=== PATIENT | male | born 1985 | race Native Hawaiian/Other Pacific Islander ===

== ENCOUNTER 2019-01-23 08:16 | Emergency (ER) | payer MEDICAID, OTHER ==
[~2019-01-23] VITALS: Ht 185.4 cm; Wt 138.0 kg
[2019-01-23 08:24] VITALS: BP 138/97
== END 2019-01-23 09:50 | disposition home or self-care (01) ==
LOC: ER 08:17
DX: M76.61 Achilles tendinitis, right leg (principal); F15.90 Other stimulant use, unspecified, uncomplicated
CPT/HCPCS: 29515; 73630; 99283

== ENCOUNTER 2019-02-02 15:18 | Outpatient (CLI) | payer MEDICAID | END 2019-02-02 17:50 | disposition home or self-care (01) | LOC: ORTHO 15:18 | PROVIDERS: ATTEND Orthopaedic Surgery | DX: M76.61 Achilles tendinitis, right leg (principal) | CPT/HCPCS: G0463 ==

== ENCOUNTER 2021-12-30 15:52 | Emergency (ER) | payer MEDICAID ==
[~2021-12-30] VITALS: Ht 188 cm; Wt 186.7 kg
[2021-12-30 16:30] LABS: BASOPHILS # (AUTO) 0.1 X10'3 (0-0.2); BASOPHILS % (AUTO) 0.8 % (0-1); EOSINOPHILS # (AUTO) 0.3 X10'3 (0-0.9); EOSINOPHILS % (AUTO) 2.7 % (0-6); HEMATOCRIT 45.4 % (42.0-52.0); HEMOGLOBIN 15.8 g/dl (14.0-17.9); LYMPHOCYTES # (AUTO) 2.4 X10'3 (1.1-4.8); LYMPHOCYTES % (AUTO) 24.9 % (21-51); MEAN CORPUSCULAR HEMOGLOBIN 29.3 PG (27.0-31.0); MEAN CORPUSCULAR HGB CONC 34.8 g/dL (33.0-36.5); MEAN CORPUSCULAR VOLUME 84.2 FL (78-98); MEAN PLATELET VOLUME 7.3 FL (7.4-10.4); MONOCYTES # (AUTO) 0.5 X10'3 (0-0.9); MONOCYTES % (AUTO) 5.6 % (2-12); NEUTROPHILS # (AUTO) 6.4 X10'3 (1.8-7.7); PLATELET COUNT 335 X10'3 (140-440); RED BLOOD COUNT 5.39 X10'6 (4.70-6.10); RED CELL DISTRIBUTION WIDTH 14.3 % (11.5-14.5); WHITE BLOOD COUNT 9.6 X10'3 (4.5-11.0)
[2021-12-30 16:45] LABS: ALANINE AMINOTRANSFERASE 31 U/L (12-78); ALBUMIN 3.7 G/DL (3.4-5.0); ALBUMIN/GLOBULIN RATIO 0.9 (1.1-1.5); ALKALINE PHOSPHATASE 140 IU/L (46-116); ANION GAP 9 (8-16); ASPARTATE AMINO TRANSFERASE 26 U/L (10-37); BILIRUBIN,TOTAL 0.6 MG/DL (0.1-1.0); BLOOD UREA NITROGEN 12 MG/DL (7-18); BUN/CREATININE RATIO 13.6 (5.4-32.0); CALCIUM 9.1 MG/DL (8.5-10.1); CHLORIDE 103 MMOL/L (99-107); CREATININE 0.88 MG/DL (0.60-1.10); GLUCOSE 139 MG/DL (70-104); LIPASE 431 U/L (73-393); POTASSIUM 3.9 MMOL/L (3.5-5.1); SODIUM 144 MMOL/L (135-145); TOTAL CARBON DIOXIDE 32.1 MMOL/L (24-32); TOTAL PROTEIN 7.9 G/DL (6.4-8.2); eGFR > 90 ML/MIN
[2021-12-30 17:18] LABS: CLARITY,URINE CLEAR (Clear); COLOR,URINE YELLOW (Yellow); GLUCOSE, URINE NEGATIVE (Neg); KETONES,URINE NEGATIVE (Neg); LEUKOCYTE ESTERASE ,URINE NEGATIVE (Neg); NITRITES, URINE NEGATIVE (Neg); OCCULT BLOOD,URINE TRACE-INTACT (Neg); PH,URINE 5.5 (4.8-8.0); PROTEIN,URINE NEGATIVE (Neg); UROBILINOGEN,URINE 0.2 E.U/dL (0.2-1.0)
[2021-12-30 17:22] LABS: UA COLLECTION TYPE CLN CATCH MIDSTREAM
[2021-12-30] MEDS ORDERED: ketorolac trometh. 30mg/ml inj. IV ONE (17:22)
[2021-12-30] MEDS ORDERED: ondansetron/PF 4mg/2ml inj IV ONE (17:22)
[2021-12-30] MEDS ORDERED: normal saline 1000ML IV soln IVB ONE (17:22)
[2021-12-30 17:23] LABS: BACTERIA,URINE NONE SEEN /HPF (Neg); MUCUS STRANDS FEW /LPF (Neg); RBC,URINE 0-2 /HPF (0-2); SQUAMOUS EPITHELIAL CELL,UR FEW /LPF (FEW); WBC,URINE 0-4 /HPF (0-4)
[2021-12-30] MEDS ORDERED: IBUP-1986 PO (18:19)
[2021-12-30] MEDS ORDERED: ONDA4TAB12 PO (18:19)
[2021-12-30 18:32] VITALS: BP 114/59
== END 2021-12-30 18:38 | disposition home or self-care (01) ==
LOC: ER 15:53
DX: R10.12 Left upper quadrant pain (principal); R10.32 Left lower quadrant pain; F15.20 Other stimulant dependence, uncomplicated
CPT/HCPCS: 36415; 74176; 80053; 81001; 83690; 85025; 96361; 96374; 96375; 99284; J1885; J2405; J7030; A4615

== ENCOUNTER 2023-05-29 20:23 | Inpatient (IN) | payer BC, MEDICAID ==
[~2023-05-29] VITALS: Ht 185.4 cm; Wt 181.8 kg
[~2023-05-29 20:23] MED LIST: IBUP-1986 PO; ONDA4TAB12 PO
[2023-05-30] VITALS (8 sets, daily range): BP systolic 113–153; BP diastolic 58–95; PULSE 74–93; RESP 16–20; TEMP 97.4–99.4; O2SAT 92–100
[2023-05-30 01:26] LABS: EOSINOPHILS # (AUTO) 0.2 X10'3 (0-0.9); MEAN PLATELET VOLUME 8.4 FL (7.4-10.4)
[2023-05-30 01:31] LABS: BASOPHILS % (AUTO) 0.5 % (0-1); EOSINOPHILS % (AUTO) 1.7 % (0-6); HEMATOCRIT 52.4 % (42.0-52.0); HEMOGLOBIN 17.7 g/dl (14.0-17.9); LYMPHOCYTES # (AUTO) 2.3 X10'3 (1.1-4.8); LYMPHOCYTES % (AUTO) 25.2 % (21-51); MEAN CORPUSCULAR HEMOGLOBIN 29.1 PG (27.0-31.0); MEAN CORPUSCULAR HGB CONC 33.8 g/dL (33.0-36.5); MEAN CORPUSCULAR VOLUME 86.1 FL (78-98); MONOCYTES # (AUTO) 0.7 X10'3 (0-0.9); MONOCYTES % (AUTO) 7.9 % (2-12); NEUTROPHILS # (AUTO) 5.9 X10'3 (1.8-7.7); NEUTROPHILS % (AUTO) 64.7 % (42-75); PLATELET COUNT 308 X10'3 (140-440); RED BLOOD COUNT 6.09 X10'6 (4.70-6.10); RED CELL DISTRIBUTION WIDTH 13.9 % (11.5-14.5); WHITE BLOOD COUNT 9.1 X10'3 (4.5-11.0)
[2023-05-30 01:41] LABS: BILIRUBIN,URINE NEGATIVE (Neg); CLARITY,URINE CLEAR (Clear); COLOR,URINE YELLOW (Yellow); GLUCOSE, URINE >=1000 mg/dl (Neg); KETONES,URINE NEGATIVE (Neg); LEUKOCYTE ESTERASE ,URINE NEGATIVE (Neg); NITRITES, URINE NEGATIVE (Neg); OCCULT BLOOD,URINE NEGATIVE (Neg); PROTEIN,URINE TRACE mg/dl (Neg); UROBILINOGEN,URINE 0.2 E.U/dL (0.2-1.0)
[2023-05-30 01:43] LABS: UA COLLECTION TYPE CLN CATCH MIDSTREAM
[2023-05-30 01:54] LABS: MUCUS STRANDS MANY /LPF (Neg); SQUAMOUS EPITHELIAL CELL,UR MODERATE /LPF (FEW)
[2023-05-30 01:55] LABS: BACTERIA,URINE FEW /HPF (Neg); RBC,URINE 0-2 /HPF (0-2); WBC,URINE 0-4 /HPF (0-4)
[2023-05-30 02:04] LABS: ALANINE AMINOTRANSFERASE 35 U/L (12-78); ALBUMIN 3.6 G/DL (3.4-5.0); ALBUMIN/GLOBULIN RATIO 0.8 (1.1-1.5); ALKALINE PHOSPHATASE 137 IU/L (46-116); ANION GAP 7 (8-16); ASPARTATE AMINO TRANSFERASE 22 U/L (10-37); BILIRUBIN,TOTAL 0.5 MG/DL (0.1-1.0); BLOOD UREA NITROGEN 15 MG/DL (7-18); BUN/CREATININE RATIO 16.7 (10.0-20.0); CALCIUM 9.2 MG/DL (8.5-10.1); CHLORIDE 102 MMOL/L (99-107); GLUCOSE 269 MG/DL (70-104); SODIUM 140 MMOL/L (135-145); TOTAL CARBON DIOXIDE 30.7 MMOL/L (24-32); TOTAL PROTEIN 8.1 G/DL (6.4-8.2); eCRCL 125 ML/MIN; eGFR > 90 ML/MIN
[2023-05-30 02:07] LABS: LIPASE 165 U/L (16-77)
[2023-05-30] MEDS: normal saline 1000ML IV soln IVB ONE (03:09)
[2023-05-30] MEDS ORDERED: HYDROmorphone/PF 0.2 MG/ML SYRINGE IV PRN (03:50)
[2023-05-30] MEDS ORDERED: magnesium 4gm in 100ml NS 100 ML IV PRN (03:50)
[2023-05-30] MEDS ORDERED: magnesium hydroxide 30ml (MOM) UD suspension PO PRN (03:50)
[2023-05-30] MEDS ORDERED: potassium Cl 40MEQ/1/2NS 520ml 520 ML IV PRN (03:50)
[2023-05-30] MEDS ORDERED: mag hydrox/Alum hydrox/simeth 30ml oral suspension PO PRN (03:50)
[2023-05-30] MEDS ORDERED: ondansetron/PF 4mg/2ml inj IV PRN (03:50)
[2023-05-30] MEDS ORDERED: potassium Cl 20 mEq SR tablet PO PRN ×2 (03:50)
[2023-05-30] MEDS ORDERED: magnesium Cl slow-release 64mg tablet PO PRN (03:50)
[2023-05-30] MEDS ORDERED: dextrose 50%-water 50ml dispensing syringe IV PRN ×4 (04:05→11:55)
[2023-05-30] MEDS ORDERED: glucagon, human recombinant 1mg kit SUBCUT PRN ×2 (04:05→11:55)
[2023-05-30] MEDS ORDERED: DEXTROSE 15 GM of carb/4 tabs (each vial/BOTTLE has 4 tablets) PO PRN ×4 (04:05→11:55)
[2023-05-30 04:21] LABS: HEMOGLOBIN A1C 9.5 % (4.5-6.2)
[2023-05-30] MEDS: normal saline 1000ml 1,000 ML IV ONE ×2 (05:03)
[2023-05-30] MEDS: acetaminophen 325mg tablet PO PRN (05:39)
[2023-05-30] MEDS ORDERED: iohexol 300mg/ml 100ml inj. ONE (06:39)
[2023-05-30] MEDS: pantoprazole 40 MG vial IV SCH (08:36)
[2023-05-30] MEDS: docusate sod 100mg capsule PO SCH (08:36)
[2023-05-30] MEDS: normal saline 1000ml 1,000 ML IV SCH (08:44)
[2023-05-30] MEDS ORDERED: insulin Lispro (HumaLOG) vial - multi-dose SQ SCH (12:00)
[2023-05-30] MEDS: insulin Lispro (HumaLOG) vial - multi-dose SQ SCH (12:30)
[2023-05-30] MEDS: insulin glargine (Lantus) pen - multi-dose SQ SCH (21:23)
[2023-05-30] MEDS: enoxaparin 40mg/0.4ml syringe SQ SCH (21:34)
[2023-05-31 06:40] VITALS: BP 134/92; PULSE 86; RESP 22; TEMP 97.2; O2SAT 93
[2023-05-31 07:16] LABS: BASOPHILS % (AUTO) 0.3 % (0-1); EOSINOPHILS # (AUTO) 0.2 X10'3 (0-0.9); EOSINOPHILS % (AUTO) 2.7 % (0-6); HEMATOCRIT 49.5 % (42.0-52.0); HEMOGLOBIN 16.3 g/dl (14.0-17.9); LYMPHOCYTES # (AUTO) 1.6 X10'3 (1.1-4.8); LYMPHOCYTES % (AUTO) 17.9 % (21-51); MEAN CORPUSCULAR HEMOGLOBIN 28.4 PG (27.0-31.0); MEAN CORPUSCULAR VOLUME 86.1 FL (78-98); MEAN PLATELET VOLUME 7.4 FL (7.4-10.4); MONOCYTES # (AUTO) 0.6 X10'3 (0-0.9); MONOCYTES % (AUTO) 6.7 % (2-12); NEUTROPHILS # (AUTO) 6.3 X10'3 (1.8-7.7); NEUTROPHILS % (AUTO) 72.4 % (42-75); PLATELET COUNT 289 X10'3 (140-440); RED BLOOD COUNT 5.75 X10'6 (4.70-6.10); RED CELL DISTRIBUTION WIDTH 13.8 % (11.5-14.5); WHITE BLOOD COUNT 8.7 X10'3 (4.5-11.0)
[2023-05-31 07:43] LABS: ALANINE AMINOTRANSFERASE 30 U/L (12-78); ALBUMIN/GLOBULIN RATIO 0.7 (1.1-1.5); ALKALINE PHOSPHATASE 120 IU/L (46-116); ANION GAP 3 (8-16); ASPARTATE AMINO TRANSFERASE 25 U/L (10-37); BILIRUBIN,TOTAL 0.8 MG/DL (0.1-1.0); BLOOD UREA NITROGEN 12 MG/DL (7-18); BUN/CREATININE RATIO 17.6 (10.0-20.0); CALCIUM 8.3 MG/DL (8.5-10.1); CHLORIDE 101 MMOL/L (99-107); CHOL/HDL RATIO 5.6 (0.00-4.99); CHOLESTEROL 169 MG/DL (0-200); CREATININE 0.68 MG/DL (0.60-1.10); GLUCOSE 234 MG/DL (70-104); HDL CHOLESTEROL 30 MG/DL (35-60); LDL CHOLESTEROL 121 MG/DL (50-100); POTASSIUM 4.1 MMOL/L (3.5-5.1); SODIUM 137 MMOL/L (135-145); TOTAL CARBON DIOXIDE 33.1 MMOL/L (24-32); TOTAL PROTEIN 7.1 G/DL (6.4-8.2); TRIGLYCERIDES 178 MG/DL (20-135); eCRCL 165 ML/MIN; eGFR > 90 ML/MIN
[2023-05-31 08:00] VITALS: RESP 22; O2SAT 93
[2023-05-31 10:00] VITALS: BP 139/66; PULSE 91; RESP 20; TEMP 97.1; O2SAT 87
[2023-05-31] MEDS ORDERED: LANTUS SQ (10:31)
== END 2023-05-31 13:30 | disposition home or self-care (01) | DRG 392 ==
LOC: ER 20:23 → ED HOLD 05-30 04:02 → ORTHO 4S 05-30 07:30
PROVIDERS: ADMIT Internal Medicine Critical Care Medicine; ATTEND Internal Medicine
PROC: BW211ZZ Computerized Tomography (CT Scan) of Abdomen and Pelvis using Low Osmolar Contrast (ICD-10-PCS; principal; 2023-05-30)
DX: R10.10 Upper abdominal pain, unspecified (principal); Z68.43 Body mass index [BMI] 50.0-59.9, adult; K59.00 Constipation, unspecified; K76.0 Fatty (change of) liver, not elsewhere classified; E11.9 Type 2 diabetes mellitus without complications; E66.01 Morbid (severe) obesity due to excess calories; Z90.49 Acquired absence of other specified parts of digestive tract
CPT/HCPCS: 36415; 74178; 76700; 80053; 80061; 81001; 82948; 83036; 83690; 84145; 84484; 85025; 87081; 93005; 99285; A4615; C9113; G0378; J1650; J1815; J3490; J7030; Q9967

== ENCOUNTER 2025-01-20 16:49 | Inpatient (IN) | payer BC ==
[~2025-01-20] VITALS: Ht 185.4 cm; Wt 186.0 kg
[~2025-01-20 16:49] MED LIST changes: -IBUP-1986 PO; +LANTUS SQ; +ONDA-243 PO; -ONDA4TAB12 PO
--- NOTE | 2025-01-20 17:10 | Physician Documentation ---
History of Present Illness ~ Chief Complaint: Diabetic Complication Stated Complaint: HIGH BLOOD SUGAR Time Seen by MD: 18:08 Primary Medical Doctor: NONE HPI This is a 39-year-old male with hx Type II DM brought to the emergency department by ambulance today due to concerns for hyperglycemia despite taking his usual insulin and metformin. When the EMS arrived, patient was found to be hypoxic with sats in the mid 80s on room air. He reports that he typically does not require oxygen, but he does use CPAP at night. He denies chills or fever, chest pain, nausea, vomiting, abdominal pain. He does note that he is excessively thirsty and urinating frequently. History as above. He reports no decreased in exercise tolerance in addition to not using any oxygen at home. Medication Reconciliation Allergies: Coded Allergies: No Known Allergies (Unverified , 01/08/19) Scheduled Insulin Glargine,Hum.rec.anlog* (Lantus*), 10 UNIT SQ HS Scheduled PRN ONDANSETRON ODT 4mg tablet (Ondansetron Odt), 1 TABLET PO Q6H PRN for nausea/vomiting Past Medical History Past Medical History: No Pertinent History Past Surgical History: no surgical history Alcohol Use: Sober Lives In: Home Review of Systems ROS As stated above in the HPI, otherwise all systems are reviewed and negative. Physical Exam Vital Signs: Temperature: 98.2, Source: Oral, Heart Rate: 95, Respiratory Rate: 12, BP: 140/83, Pulse Oximetry: 92, Weight: 186.000 Oxygen Flow Rate: 5.0 Physical Exam General: Alert, no apparent distress. HEENT: PERRL, EOMI, no injection, moist mucous membranes. Neck: Full range of motion. Respiratory: Lungs clear, no respiratory distress. Dim bases. Chest: No accessory muscle use. Cardiovascular: Regular rate and rhythm, no murmurs. Gastrointestinal: Soft, nontender, nondistended. Bowels sounds present. Extremities: Normal range of motion, no deformity. Neurologic: Oriented x4. Psychiatric: Normal mood and affect. Skin: Normal color, warm and dry. No edema, no ecchymosis. Progress Progress Note 1720: Case discussed with Dr. Lang who affirms plan for CTA to r/u P.E. Results/Orders Results/Orders Orders - DEN ARELLANO MD Abg (Arterial Blood Gas) (01/20/25 18:58) Page Hospitalist (01/20/25 20:17) Fill Out Med Reconciliation (01/20/25 20:17) Medications Received in ER Medications (Trade) Dose Ordered Sig/Adelia Route PRN Reason Start Time Stop Time Status Last Admin Dose Admin (HumuLIN R 10 units per 0.1 ML syringe) 10 units ONCE ONCE SQ 01/20/25 17:05 01/20/25 17:06 DC 01/20/25 17:33 10 UNITS Vital Signs 01/20/25 01/20/25 01/20/25 16:52 17:36 18:19 Temp 98.2 Pulse 95 91 Resp 12 15 15 B/P (MAP) 140/83 130/77 (94) Pulse Ox 92 92 O2 Flow Rate 5.0 4.0 Laboratory Tests Test 01/20/25 17:05 01/20/25 17:08 01/20/25 17:20 01/20/25 19:22 Glucometer 399 H Influenza Type A Antigen Negative Influenza Type B Antigen Negative SARS-CoV-2 Antigen (Rapid) Negative White Blood Count 7.1 Red Blood Count 6.56 H Hemoglobin 19.0 *H Hematocrit 57.5 H Mean Corpuscular Volume 87.6 Mean Corpuscular Hemoglobin 28.9 Mean Corpuscular Hemoglobin Concent 33.0 Red Cell Distribution Width 14.8 H Platelet Count 236 Mean Platelet Volume 8.0 Neutrophils (%) (Auto) 67.0 Lymphocytes (%) (Auto) 22.8 Monocytes (%) (Auto) 6.9 Eosinophils (%) (Auto) 2.3 Basophils (%) (Auto) 1.0 Neutrophils # (Auto) 4.8 Lymphocytes # (Auto) 1.6 Monocytes # (Auto) 0.5 Eosinophils # (Auto) 0.2 Basophils # (Auto) 0.1 CBC Comment Differential Total Cells Counted 100 Neutrophils % (Manual) 65.0 Lymphocytes % (Manual) 26.0 Monocytes % (Manual) 7.0 Eosinophils % (Manual) 2.0 Platelet Estimate Normal Red Blood Cell Morphology Normal Basophilic Stippling Sodium Level 139 Potassium Level 4.2 Chloride Level 98 L Carbon Dioxide Level 38.3 H Anion Gap 3 L Blood Urea Nitrogen 18 Creatinine 0.84 Estimated GFR/1.73 m2 > 90 BUN/Creatinine Ratio 21.4 H Glucose Level 352 H Calcium Level 9.0 Magnesium Level 1.8 Troponin I High Sensitivity 8 8 Pro-B-Type Natriuretic Peptide 66 Albumin 3.3 L Chemistry Comments Blood Gas Specimen Type Arterial Blood Gas Puncture Site Rb O2 Saturation 91.5 L Arterial Blood pH (Temp corrected) 7.353 Arterial Blood pCO2 (Temp correct) 66.1 *H Arterial Blood pO2 (Temp corrected) 64.7 L Arterial Blood PO2/FiO2 Ratio 2.02 Arterial Blood HCO3 35.9 H Arterial Blood Base Excess 6.7 H Arterial Blood Oxyhemoglobin 91.0 L Arterial Blood Carboxyhemoglobin 0.4 L Arterial Blood Methemoglobin 0.2 Arterial Blood Deoxyhemoglobin 8.4 H Rell Test Na Blood Gas Hemoglobin 20.4 *H Blood Gas Temperature 37.0 Blood Gas Liter Flow 3 Blood Gas Modality Nasal cannula FiO2 32.0 Blood Gas Critical Value Called To dr arellano Troponin I High Sens Percent Delta 0 Troponin I Hi Sens Absolute Change 0 Test 01/20/25 20:05 Troponin I High Sensitivity 9 Troponin I High Sens Percent Delta 12 Troponin I Hi Sens Absolute Change 1 Medical Decision Making Additional information obtaine: old records Findings Reviewed records from previous hospitalization here 05/30/23. Patient presents to the emergency room for evaluation of hyperglycemia. Differentials include but are not limited to hyperosmolar state, DKA, uncontrolled diabetes, dehydration. Patient was noted to be significantly hypoxic along with pleural effusions. Concern for fluid overload although patient's BNP is not very high. We will admit for further investigation. Differential Dx:Considerations: Include: Appendicitis, Cholecysitis Differential Diagnosis Most Likely Diagnoses: Hyperosmolar hyperglycemic state (HHS): The blood glucose in the 400s with polyuria and polydipsia in a morbidly obese patient with type 2 diabetes is highly suggestive of HHS, which is characterized by marked hyperglycemia (often >600 mg/dL but can be lower), hyperosmolarity, and profound dehydration with little or no ketosis. HHS is a life-threatening emergency that commonly occurs in patients with type 2 diabetes and is often precipitated by underlying infection, medication nonadherence, or uncontrolled diabetes. The absence of abdominal pain and fever does not exclude HHS, as neurologic symptoms ranging from lethargy to coma are more characteristic than gastrointestinal symptoms. The hypoxia could represent a precipitating infection (pneumonia) or a consequence of severe dehydration and metabolic derangement. Obesity hypoventilation syndrome (OHS) with acute decompensation: The hypoxia (oxygen saturation in the 80s on room air) in a morbidly obese patient strongly suggests OHS, defined by obesity (BMI ?30 kg/m), sleep-disordered breathing, and awake daytime hypercapnia (Minnie? ?45 mm Hg at sea level). OHS is the most severe form of obesity-induced respiratory compromise and can present with hypoxemia and hypercapnia. The hyperglycemic crisis may have precipitated [id number] respiratory failure, or the respiratory failure may be the primary problem with concurrent hyperglycemia. Approximately 90% of patients with OHS have coexistent obstructive sleep apnea. The denial of symptoms is concerning, as patients with chronic hypercapnia may have blunted respiratory drive and lack dyspnea awareness. Diabetic ketoacidosis (DKA): While traditionally associated with type 1 diabetes, DKA can occur in type 2 diabetes, particularly in the setting of severe physiologic stress. The classic triad includes hyperglycemia (blood glucose >250 mg/dL), metabolic acidosis (pH <7.3, bicarbonate <18 mEq/L, anion gap >10 mEq/L), and elevated ketones. However, recent guidelines have de- emphasized hyperglycemia due to increasing incidence of euglycemic DKA. The most common symptoms are polyuria and polydipsia, followed by nausea, vomiting, abdominal pain, weight loss, severe fatigue, and dyspnea. The absence of abdominal pain makes DKA less likely than HHS, but both conditions can coexist or present along a spectrum. Community-acquired pneumonia (CAP): The hypoxia without reported symptoms could represent atypical pneumonia presentation, particularly in a patient with diabetes and obesity. Patients with impaired immune responses due to comorbidities can present with mild or absent classic pneumonia symptomsthe absence of symptoms does not exclude the diagnosis in these populations. Respiratory manifestations including cough, dyspnea, and pleuritic chest pain a re hallmark features, but systemic features such as abnormal body temperature, tachypnea, and tachycardia may be the only findings. Diabetes is a risk factor for severe pneumonia, and pneumonia is one of the most common precipitants of both HHS and DKA. Acute decompensated heart failure with pulmonary edema: Morbid obesity and diabetes are major risk factors for heart failure. The hypoxia could represent pulmonary edema from acute decompensation, which can present with dyspnea (though the patient denies this) and hypoxemia. Most patients admitted with heart failure have clinical evidence of congestion without apparent hypoperfusion. The hyperglycemia and polyuria could be concurrent metabolic derangement rather than the primary problem. However, the absence of reported dyspnea makes this less likely unless the patient has chronic compensated heart failure with acute worsening. Most Important Not to Miss Diagnoses: Pulmonary embolism (PE): Rule out with validated clinical decision rules (Wells score, PERC rule) to guide D-dimer testing, followed by CT pulmonary angiography if indicated. Morbid obesity, diabetes, and potential immobility are risk factors for venous thromboembolism. PE can present with hypoxemia and may lack classic symptoms of dyspnea or pleuritic chest pain, particularly in patients with chronic respiratory compromise who may not perceive acute changes. The hypoxia with oxygen saturation in the 80s warrants urgent evaluation for PE, especially if there is no clear alternative explanation. Acute coronary syndrome (ACS) with cardiogenic pulmonary edema: Rule out with electrocardiography immediately and serial high-sensitivity troponin measurements. Diabetes is a major risk factor for coronary artery disease, and patients with diabetes may present with atypical or silent ischemia. Acute myocardial infarction can precipitate pulmonary edema causing hypoxemia. The hyperglycemic crisis could be precipitated by the physiologic stress of ACS. Even without chest pain, ACS must be excluded in a diabetic patient with unexplained hypoxia and metabolic derangement. Sepsis from occult infection: Rule out with comprehensive evaluation including vital signs assessment, complete blood count, comprehensive metabolic panel, lactate level, blood cultures, urinalysis with culture, and chest radiography. Infection is the most common precipitant of HHS, and patients with diabetes are at increased risk for severe infections. The hypoxia could represent pneumonia, and the hyperglycemia could be stress-induced or represent HHS precipitated by infection. The absence of fever does not exclude infection, particularly in patients with diabetes who may have blunted inflammatory responses. Urinary tract infections and pneumonia are the two most common infection sources in seps is. Acute respiratory distress syndrome (ARDS) or severe pneumonia with respiratory failure: Rule out with chest radiography and arterial blood gas to assess Lynnette?/FiO? ratio and identify bilateral infiltrates. The hypoxia in the 80s on room air is severe and could represent ARDS from sepsis, pneumonia, or aspiration. ARDS is defined by acute onset, bilateral opacities on imaging, and hypoxemia not fully explained by cardiac failure or fluid overload. Morbid obesity increases aspiration risk, and hyperglycemic crises can be associated with altered mental status leading to aspiration events. Departure Admitted to Inpatient Unit: yes, to hospitalist Impression: Primary Impression: Hypoxia Additional Impressions: Uncontrolled diabetes mellitus Hyperglycemia Condition: Guarded Referrals: NO PRIMARY CARE PROVIDER (PCP) Signature Scribe Signature: x Attestation: The note accurately reflects work and decisions made by me.Den Arellano MD 01/20/25 20:17 The note accurately reflects work and decisions made by me.Judy Adler NP 01/20/25 17:06 JUDY ELDER NP Jan 20, 2025 17:10 DEN ARELLANO MD Jan 20, 2025 19:06
--- NOTE | 2025-01-20 17:19 | ELECTROCARDIOGRAPH REPORT ---
[facility] Test Date: 2025-01-20 Test Time: 17:16:12 Pat Name: TONY CARBALLO Department: [facility]-ER Patient ID: [facility]-[id number] Room: [place] [id number] Gender: M Advertising Sales Assistant: : 1985 Requested By: MARA ELDER Order Number: [id number] Reading MD: Dr. TONO Foy Measurements Intervals [place] Rate: 93 P: 42 ND: 164 QRS: 234 QRSD: 103 T: 41 QT: 366 QTc: 456 Interpretive Statements Sinus rhythm Inferior infarct, old Consider anterior infarct Baseline wander in lead(s) V4,V5,V6 Electronically Signed On 01-21-2025 16:53:[address] TONO Foy Please click the below link to view image of tracing.
[2025-01-20] MEDS: insulin regular, human 10 units/0.1 ml syringe SQ ONE (17:33)
[2025-01-20 17:37] LABS: MEAN PLATELET VOLUME 8.0 FL (7.4-10.4)
[2025-01-20 17:38] LABS: RED CELL DISTRIBUTION WIDTH 14.8 % (11.5-14.5)
--- NOTE | 2025-01-20 17:43 | RADIOLOGY REPORT ---
CHEST RADIOGRAPH Indication: hypoxia Technique: DI CHEST,SINGLE VIEW COMPARISON: None FINDINGS: The cardiac silhouette is enlarged. The lungs demonstrate bilateral patchy airspace opacities most pronounced in the perihilar and lower lobe region, [id number]-left. The pulmonary vasculature is prominent. Small bilateral pleural effusions. There is no pneumothorax. IMPRESSION: As above
[2025-01-20 17:44] LABS: INFLUENZA TYPE A ANTIGEN RAPID NEGATIVE (Negative); INFLUENZA TYPE B ANTIGEN RAPID NEGATIVE (Negative)
[2025-01-20 17:52] LABS: CREATININE 0.84 MG/DL (0.60-1.10); PRO BRAIN NATRIURETIC PEPTIDE 66 PG/ML (0-125); TOTAL CARBON DIOXIDE 38.3 MMOL/L (24-32); eCRCL 132 ML/MIN; eGFR > 90 ML/MIN
--- NOTE | 2025-01-20 18:43 | RADIOLOGY REPORT ---
Indication: hypoxia Technique: CT axial images of the chest are obtained with intravenous contrast per CT angiogram protocol. Coronal and sagittal reformats were obtained. Radiation Dose Information: CTDI volume is 36 mGy. Dose-length product is 1580 mGy*cm Comparison: None FINDINGS: Suboptimal opacification of the pulmonary arteries. No large defect within the main left and right pulmonary arteries. The segmental and subsegmental branches are inadequately opacified/characterized. Trachea is patent. No pneumothorax. Pulmonary ground-glass attenuation. Pulmonary atelectatic changes bilaterally. Heart normal in size. Right paratracheal lymph node measuring 14 mm. Right hilar lymph node measuring 15 mm. Left hilar lymph node measuring 13 mm. No supraclavicular lymphadenopathy. 10 mm left axillary lymph node. No significant pleural effusion. Cholecystectomy. No aggressive osseous process. Xcuw-xf-[id number] thoracic degenerative disc disease. IMPRESSION: No evidence for large pulmonary embolism. Mediastinal/hilar lymphadenopathy which can be secondary to infectious, inflammatory, less likely but not ruled out a neoplastic etiology. Pulmonary ground-glass attenuation bilaterally with differential considerations including hypoventilatory changes/ air trapping, edema, inflammatory etiologies.
[2025-01-20 19:26] LABS: ABG BASE EXCESS 6.7 mmol/L (-2.0-3.0); ABG HCO3 35.9 mmol/L (21.0-28.0); ABG OXYGEN SATURATION 91.5 % (94.0-98.0); ABG PCO2 (T) 66.1 mmHg (35.0-48.0); ABG PH (T) 7.353 (7.350-7.450); ABG PO2 (T) 64.7 mmHg (83.0-108.0); FCOHb 0.4 % (0.5-1.5); FHHb 8.4 % (0.0-5.0); FIO2 32.0 mmHg/%; FLOW 3 L/min; FMetHb 0.2 % (0.0-1.5); FO2Hb 91.0 % (94.0-98.0); MODE NASAL CANNULA; PATIENT TEMPERATURE 37.0; TOTAL HEMOGLOBIN 20.4 G/dl (13.5-17.5)
[2025-01-20 19:46] LABS: EOSINOPHILS % (MANUAL) 2.0 % (0-6); LYMPHOCYTES % (MANUAL) 26.0 % (21-51); MONOCYTES % (MANUAL) 7.0 % (2-12); NEUTROPHILS % (MANUAL) 65.0 % (42-75); PLATELET ESTIMATE NORMAL
[2025-01-20] MEDS ORDERED: magnesium sulf-water 4G/100mL 100 ML IV PRN (20:50)
[2025-01-20] MEDS ORDERED: potassium Cl 40MEQ/1/2NS 520ml 520 ML IV PRN (20:50)
[2025-01-20] MEDS ORDERED: magnesium Cl slow-release 64mg tablet PO PRN (20:50)
[2025-01-20] MEDS: PERFLUTREN PROTEIN-A MICROSPHR (Optison) 0.22 MG/ML 3ML VIAL IV ONE (20:50)
[2025-01-20] MEDS ORDERED: magnesium sulf-water 2g/50mL 50 ML IV PRN (20:50)
[2025-01-20] MEDS ORDERED: potassium Cl 20 mEq SR tablet PO PRN ×2 (20:50)
--- NOTE | 2025-01-20 20:50 | HISTORY AND PHYSICAL-Residence ---
History & Physical Providers to CC Resident Creating Document: JOSELYNROLLY LARSON CC: CHATA TRAN MD ~ History of Present Illness Primary Medical Doctor: NONE Reason for Admit\Complaint: HIGH BLOOD GLUCOSE OF 400 H History of Present Illness 39-year-old male with history of severe obesity, ZEUS, type 2 DM presented to the ER with chief complaints of high blood glucose levels of 400. Patient stated he was in his usual state, he usually takes 65 units of Lantus at night and sliding scale of lispro. This morning he took his insulin, it oatmeal for breakfast and then went for work. Then all of a sudden he noticed sweating, lightheadedness, visual blurriness, nausea, and which are associated with polyuria and polydipsia. He felt uncomfortable and measure his blood glucose levels at work which were 400. This is highly unusual for him as his blood glucose levels are usually in the range of 170-200. Due to these concerns he called EMS. He denies chest pain, shortness of breath. He says he is usually active at work and goes to gym even then he does not feel dyspneic. Denies swelling of lower extremities He uses CPAP during night. He does not know his present AHI, but previous AHI, before the use of CPAP was 20. He also noticed he feels drowsy in the mornings after waking up sometimes associated with headaches. Allergies: Coded Allergies: No Known Allergies (Unverified , 01/08/19) Home Medications Home Medications Active Lantus* (Insulin Glargine) 100 Unit/1 Ml Vial 10 Unit SQ HS 30 Days Ondansetron Odt (Ondansetron HCl) 4 Mg Tab.rapdis 1 Tablet PO Q6H PRN Past Medical History Past Medical History Type 2 diabetes mellitus Severe Obesity Obstructive sleep apnea Past Surgical History Surgical History Comment Cholecystectomy Past Social History Social History Comment Nonsmoker, denies alcohol use, denies illicit drug use Independent for ADLs. 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 no change in appetite/weight HEENT: No blurring of the vision, No sore throat, epistaxis, tinnitus Cardiovascular: No chest pain/discomfort, palpitations, syncope. No pedal edema Respiratory: No sob, cough,, hemoptysis Gastrointestinal: No abdominal pain, nausea, vomiting. No diarrhea, constipation, melena. Genitourinary: No frquency, urgency, incontinence, nocturia. No dysuria, hematuria Musculoskeletal: No arthralgia, myalgia Endocrine: Positive for fatigue, polydipsia, polyuria. No heat or cold intolerance Neurologic: Positive headache,no vertigo. No weakness, numbness or tingling of extremities Psychiatric: No hallucinations/delusions, no anhedonia, no suicidal ideation\ Hematologic: No bleeding or bruises Reviewed in full. All negative except for pertinent positives in HPI Exam Vitals: Vital Signs Date Time Temp Pulse Resp B/P (MAP) Pulse Ox O2 Delivery O2 Flow Rate FiO2 01/20/25 18:19 15 01/20/25 17:36 91 92 4.0 01/20/25 16:52 98.2 General: General: Pleasant does not adult male, obese, AAO x4, not in apparent distress Head: Normocephalic with an atraumatic Eyes: Pupils- 3mm, reacting to light, conjunctiva- anicteric Nose and throat: No polyps, septum- normal, no mucosal ulcers Neck: Supple, no lymphadenopathy, no carotid bruit Respiratory: No use of accessory muscles of respiration, Bilateral normal vesiscular breath sounds heard. No wheeze, rhochi or creps Cardiac: S1-S2 heard, rythm regular, no gallop/murmur Abdomen: non distended, no tenderness, no organomegaly, bowel sounds- heard Extremities: no clubbing, skin over the both lower extremities is thickened hyperpigmented 1+ pedal edema, no deformities, peripheral pulses- 2+ Skin: warm and dry, no rash, no purpura Neuro: No focal deficit, gross cranial nerve exam- normal Diagnostic Data Last Recorded Lab Results: 01/20/25 1720 01/20/25 1720 Advance Care Planning Advanced Care plannin - 30 Minutes (Code status is discussed with her and he opted for full code) Additional Plan 39-year-old male with history of severe obesity, ZEUS, type 2 DM presented to the ER with chief complaints of high blood glucose levels of 400. Type 2 diabetes mellitus with hyperglycemia with A1c of 11.9 -normal anion gap, no metabolic acidosis, urine ketones pending -after his home dose of 65 units Lantus and 20 units lispro t.i.d. along with high-dose supplemental insulin protocol -we will give 500 cc of normal saline bolus -monitor blood glucose levels and adjust insulin dose -hold metformin on hold Acute hypoxemic/hypercapnic respiratory failure Obstructive sleep apnea Suspect secondary to obesity hypoventilation syndrome/Pickwickian syndrome -oxygen sats of 88 on room air, however patient has no symptoms of hypoxia, no tachypnea -ABG showed primary respiratory acidosis with compensated metabolic alkalosis, 7.35/66/64/35.9 -he is using CPAP with pressure support of 13 at home -we will do BIPAP with 15/8 and repeat ABG in 6 hours -ekg showed severe right ventricular hypertrophy, qS in V2 V6 -CTA chest no pulmonary embolus -follow up on 2D echo to look for any pulmonary hypertension -consult pulmo in the am regarding the settings of bipap Mediastinal lymphadenopathy possible community-acquired pneumonia- unable to exclude -CTA chest showed right paratracheal, bilateral hilar lymph nodes of 1.5 cm, and 1 cm left axillary lymph nodes -CBC no leukocytosis/lymphocytosis, influenza and COVID negative, no B symptoms -differentials include infection, sarcoidosis, neoplastic process -follow up on repeat calcium and JESSICA, HIV, LDH -empirically started on IV Rocephin and azithromycin Polycythemia -H&H 19/57 with increased RBC -given history of ZEUS with ohs- suspect secondary polycythemia secondary to hypoxia versus secondary polycythemia due to dehydration -repeat CBC in the a.m. Severe obesity -BMI of 54 -patient would definitely benefit from GLP one analogs Code Status: Full code Line/tube: PIV DVT prophylaxis: Lovenox Nutrition: 60 g carb controlled PT: no Prognosis: Guarded Disposition: Continue care in PCU, pulmp consult pending Jose Melendrez MD IM PGY-3 resident I saw and discussed the case with the resident team Agree with assessment and plan Suggest that pulmonology follow so as to follow after DC Date of Service: Jan 20, 2025 Billing Provider: CHATA TRAN MD, HARIVARSHA, RES Jan 20, 2025 20:50 CHATA TRAN MD Jan 21, 2025 12:08
[2025-01-20] MEDS ORDERED: glucagon, human recombinant 1mg kit SUBCUT PRN (21:00)
[2025-01-20] MEDS ORDERED: insulin glargine (Lantus) pen - multi-dose SQ SCH (21:00)
[2025-01-20] MEDS ORDERED: dextrose 50%-water 50ml dispensing syringe IV PRN ×2 (21:00)
[2025-01-20] MEDS ORDERED: DEXTROSE 15 GM of carb/4 tabs (each vial/BOTTLE has 4 tablets) PO PRN (21:00)
[2025-01-20] MEDS: normal saline 500ml IV soln 500 ML IV ONE (21:05)
[2025-01-20] MEDS: insulin glargine (Lantus) pen - multi-dose SQ SCH (22:43)
[2025-01-20] MEDS: INSULIN LISPRO 100 UNIT/ML INSULN.PEN MULTI-DOSE SQ SCH (22:45)
[2025-01-20] MEDS: CefTRIAXone/D5W-Rocephin 1gm 50 ML IV SCH (22:51)
[2025-01-21] VITALS (19 sets, daily range): BP systolic 70–120; BP diastolic 36–79; PULSE 75–92; RESP 12–27; TEMP 97.2–98; O2SAT 89–98
[2025-01-21] MEDS: ondansetron/PF 4mg/2ml inj IV PRN (00:10)
[2025-01-21] MEDS: azithromycin/NS 500mg/250ml 250 ML IV SCH (00:54)
[2025-01-21] MEDS ORDERED: ATOR20TA66 PO (01:53)
[2025-01-21] MEDS ORDERED: METF-438 PO (01:53)
[2025-01-21] MEDS ORDERED: INSU100I61 SQ (01:53)
[2025-01-21] MEDS ORDERED: LISI20TA28 PO (01:53)
[2025-01-21] MEDS ORDERED: LANTUS SUBCUT (01:54)
[2025-01-21] MEDS: normal saline 1000ml 1,000 ML IV ONE ×2 (02:35→04:14)
--- NOTE | 2025-01-21 03:22 | ELECTROCARDIOGRAPH REPORT ---
[facility] Test Date: 2025-01-21 Test Time: 03:18:36 Pat Name: TONY CARBALLO Department: [facility] 3S Patient ID: [facility]-[id number] Room: [place] [id number] B Gender: M Wireless Sales Manager: : 1985 Requested By: MARSHA ALVES Order Number: [id number] Reading MD: Dr. TONO Foy Measurements Intervals [place] Rate: 86 P: 48 CO: 165 QRS: 174 QRSD: 98 T: 16 QT: 379 QTc: 454 Interpretive Statements Sinus rhythm Inferior infarct, old Consider anterior infarct Electronically Signed On 01-21-2025 16:49:[address] TONO Foy Please click the below link to view image of tracing.
[2025-01-21] MEDS: INSULIN LISPRO 100 UNIT/ML INSULN.PEN MULTI-DOSE SQ ONE (03:46)
[2025-01-21] MEDS: normal saline 1000ml 1,000 ML IV SCH (05:50)
[2025-01-21 06:51] LABS: MEAN PLATELET VOLUME 7.7 FL (7.4-10.4); RED CELL DISTRIBUTION WIDTH 15.4 % (11.5-14.5)
[2025-01-21 07:10] LABS: HIV ANTIBODY 1&2 RAPID NON-REACTIVE (Neg)
[2025-01-21 07:31] LABS: CHOL/HDL RATIO 5.4 (0.00-4.99); CREATININE 1.51 MG/DL (0.60-1.10); LACTATE DEHYDROGENASE 181 U/L (85-227); LDL CHOLESTEROL 110 MG/DL (50-100); TOTAL CARBON DIOXIDE 36.0 MMOL/L (24-32); eCRCL 73 ML/MIN; eGFR 51 ML/MIN
[2025-01-21] MEDS: K and/or MAG REPLACEMENT MC SCH (08:00)
[2025-01-21] MEDS: INSULIN LISPRO 100 UNIT/ML INSULN.PEN MULTI-DOSE SQ SCH (09:26)
[2025-01-21] MEDS: enoxaparin 40mg/0.4ml syringe SUBCUT SCH (09:26)
[2025-01-21] MEDS: docusate sod 100mg capsule PO SCH (09:27)
[2025-01-21 09:46] LABS: ABG BASE EXCESS 3.2 mmol/L (-2.0-3.0); ABG HCO3 34.3 mmol/L (21.0-28.0); ABG OXYGEN SATURATION 82.8 % (94.0-98.0); ABG PCO2 (T) 78.8 mmHg (35.0-48.0); ABG PH (T) 7.257 (7.350-7.450); ABG PO2 (T) 50.4 mmHg (83.0-108.0); ALLEN'S TEST POSITIVE; FCOHb 1.3 % (0.5-1.5); FHHb 16.9 % (0.0-5.0); FIO2 21.0 mmHg/%; FMetHb 0.3 % (0.0-1.5); FO2Hb 81.5 % (94.0-98.0); MODE ROOM AIR; PATIENT TEMPERATURE 37.0; TOTAL HEMOGLOBIN 19.4 G/dl (13.5-17.5)
[2025-01-21 10:04] LABS: LEUKOCYTE ESTERASE ,URINE NEGATIVE (Neg); NITRITES, URINE NEGATIVE (Neg); OCCULT BLOOD,URINE NEGATIVE (Neg)
[2025-01-21 10:10] LABS: UA COLLECTION TYPE NON-SPECIFIED
[2025-01-21 10:12] LABS: CAL OXALATE CRYSTALS FEW /HPF (NEGATIVE); FINE GRANULAR CAST 0-3 /LPF (NEGATIVE); MUCUS STRANDS FEW /LPF (Neg); SQUAMOUS EPITHELIAL CELL,UR FEW /LPF (FEW)
[2025-01-21 11:00] LABS: URINE AMPHETAMINE SCREEN NEGATIVE (Neg); URINE BARBITUATE SCREEN NEGATIVE (Neg); URINE BENZODIAZEPINES SCREEN NEGATIVE (Neg); URINE CANNABINOID SCREEN NEGATIVE (Neg); URINE COCAINE SCREEN NEGATIVE (Neg); URINE METHADONE SCREEN NEGATIVE (Neg); URINE OPIATE SCREEN NEGATIVE (Neg); URINE PHENCYCLIDINE SCREEN NEGATIVE (Neg)
[2025-01-21] MEDS: normal saline 500ml IV soln 500 ML IV ONE (12:32)
[2025-01-21 13:12] LABS: ABG BASE EXCESS 2.3 mmol/L (-2.0-3.0); ABG HCO3 33.2 mmol/L (21.0-28.0); ABG OXYGEN SATURATION 98.2 % (94.0-98.0); ABG PCO2 (T) 76.6 mmHg (35.0-48.0); ABG PH (T) 7.251 (7.350-7.450); ABG PO2 (T) 107.2 mmHg (83.0-108.0); ALLEN'S TEST POSITIVE; FCOHb 1.7 % (0.5-1.5); FHHb 1.8 % (0.0-5.0); FIO2 40.0 mmHg/%; FMetHb 0.2 % (0.0-1.5); FO2Hb 96.3 % (94.0-98.0); MODE MASK - BIPAP; PATIENT TEMPERATURE 36.2; RESPIRATORY RATE 16 b/min; TOTAL HEMOGLOBIN 18.1 G/dl (13.5-17.5)
--- NOTE | 2025-01-21 17:02 | CARDIOLOGY REPORT ---
APPROVED REPORT EXAM: Comprehensive 2D, Doppler, and color-flow Echocardiogram. 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 2.83 cm IVC 22.43 mm FS (%) 23.5 % SV 48.3 ml CO 3.7 L/min M-Mode Dimensions Left Atrium(MM) 4.03 (2.5-4.0cm) Aortic Root 3.23 (2.2-3.7cm) MV EPSS 0.8 (<0.5cm) Aortic Valve AoV Peak Nino. 167.4 cm/s AoV VTI 33.7 cm AO Peak GR. 11.2 mmHg AO Mean GR. 7 mmHg LVOT VTI 27.67 cm LVOT Peak Nino. 130.2 cm/s ALVINO(VTI)/BSA 3.65 cm2/m2 ALVINO (VTI) 3.65 cm2 AV DI 0.82 % Mitral Valve MV E Velocity 108.9 cm/s MV Peak Gr. 5 mmHg MV DECEL TIME 252 ms MV A Velocity 57.8 cm/s MV PHT 80 ms E/A Ratio 1.9 MVA (PHT) 2.75 cm2 MV VMax 114.1 cm/s TDI Lateral E' P. V 14.25 cm/s Medial E' P. V 14.39 cm/s E/Lateral E' 7.6 E/Medial E' 7.6 Tricuspid Valve TR P. Velocity 165 cm/s RAP ESTIMATE 10 mmHg TR Peak Gr. 11 mmHg RVSP 21 mmHg LEFT VENTRICLE Normal LV size and wall thickness. Overall systolic function is normal. Overall LVEF is about 60%. RIGHT VENTRICLE Right ventricle is moderate to severely dilated with adequate function. ATRIA Left atrium is mildly dilated. AORTIC VALVE Trileaflet AV appears mildly sclerotic without stenosis. No insufficiency by color and spectral flow Doppler. MITRAL VALVE Mild mitral annular calcification without stenosis. Trace regurgitation. TRICUSPID VALVE Tricuspid valve is grossly normal in structure with teace regurgitation. PULMONIC VALVE Pulmonic valve is grossly normal in structure without insufficiency. GREAT VESSELS The aortic root is normal in size. The ascending aorta is normal in size. IVC is dilated and collapses less than 50% with inspiration. PERICARDIUM Normal pericardium. No effusion. Other Information Study Quality: Fair due to body habitus Conclusion Overall LVEF is about 60%. Normal LV size and wall thickness. Overall systolic function is normal. Right ventricle is moderate to severely dilated with adequate function. Trileaflet AV appears mildly sclerotic without stenosis. No insufficiency by color and spectral flow Doppler. Mild mitral annular calcification without stenosis. Trace regurgitation. Tricuspid valve is grossly normal in structure with teace regurgitation. Pulmonic valve is grossly normal in structure without insufficiency. Normal pericardium. No effusion.
--- NOTE | 2025-01-21 18:47 | PROGRESS NOTE ---
Daily Progress Note Providers to CC ~ Antibiotic Timeout Antibiotic Ordered?: Yes Subjective Was seen in PCU he denied any concerns even though his blood pressure was low he was completely asymptomatic. His main concern was elevated blood sugar levels. Patient is morbidly obese use CPAP machine at home Objective Vital Signs Date Time Temp Pulse Resp B/P (MAP) Pulse Ox O2 Delivery O2 Flow Rate FiO2 01/21/25 15:16 81 26 97 30 26 01/21/25 15:00 98.0 101/79 (86) Bi-pap/CPAP 01/21/25 08:00 4.0 Result Diagram: 01/21/25 0604 01/21/25 0604 General-patient not in any acute distress, alert awake oriented, morbidly obese chronically ill-appearing HEENT-atraumatic normocephalic, neck supple without elevated JVD, no thyromegaly or carotid bruit. No lymphadenopathy bilaterally. Eyes-no icterus or pallor seen in eyes Chest-clear to auscultation bilaterally, breathing nonlabored no tachypnea, no wheezing, no crepitation, no crackles. Heart-S1-S2 normal, regular heart rate no murmur Abdomen bowel sounds positive on auscultation, soft nondistended nontender no guarding, no rigidity Skin no active skin rash, signs of bilateral hyperpigmentation over legs Neurology-grossly intact, nonfocal alert awake oriented Extremity- no pedal edema able to move all 4 extremities Psychiatry - patient is not confused or agitated cooperated during physical examination Problem\Assessment\Plan 39-year-old male with history of severe obesity, ZEUS, type 2 DM presented to the ER with chief complaints of high blood glucose levels of 400. Type 2 diabetes mellitus with hyperglycemia with A1c of 11.9 -normal anion gap, no metabolic acidosis, urine ketones pending -after his home dose of 65 units Lantus and 20 units lispro t.i.d. along with high-dose supplemental insulin protocol -monitor blood glucose levels and adjust insulin dose - metformin on hold Low blood pressure which improved with multiple bolus of normal saline. IV fluids started at 150 mL/hour today will Monitor vitals closely Acute hypoxemic/hypercapnic respiratory failure Obstructive sleep apnea Suspect secondary to obesity hypoventilation syndrome/Pickwickian syndrome -oxygen sats of 88 on room air, however patient has no symptoms of hypoxia, no tachypnea -ABG repeated results discussed with respiratory therapy -he is using CPAP with pressure support of 13 at home -started BIPAP with 15/8 and repeat ABG in 6 hours -ekg showed severe right ventricular hypertrophy, qS in V2 V6 -CTA chest no pulmonary embolus -2D echo showed signs of pulmonary hypertension -diabetes solutions specialist referral for Dr. Sterling recommended and discussed with case operator Mediastinal lymphadenopathy possible community-acquired pneumonia- unable to exclude -CTA chest showed right paratracheal, bilateral hilar lymph nodes of 1.5 cm, and 1 cm left axillary lymph nodes -CBC no leukocytosis/lymphocytosis, influenza and COVID negative, no B symptoms -differentials include infection, sarcoidosis, neoplastic process -reviewed calcium and JESSICA, HIV, LDH - on IV Rocephin and azithromycin Polycythemia -H&H with increased RBC -given history of ZEUS with ohs- suspect secondary polycythemia secondary to hypoxia versus secondary polycythemia due to dehydration -will monitor CBC in the a.m. Severe obesity -BMI of 54 -patient would definitely benefit from GLP one analogs Code Status: Full code Line/tube: PIV DVT prophylaxis: Lovenox Nutrition: 60 g carb controlled Patient's current condition is guarded we will continue to follow patient in AM . Date of Service: Jan 21, 2025 Billing Provider: GEENA CORONEL MD Common Visit Codes: [id number] INP/OBS CARE(HIGH) GEENA CORONEL MD Jan 21, 2025 18:47
[2025-01-21] MEDS: insulin glargine (Lantus) pen - multi-dose SQ ONE (23:04)
[2025-01-22] VITALS (7 sets, daily range): BP systolic 125–139; BP diastolic 59–74; PULSE 81–88; RESP 10–21; TEMP 97.6–98.3; O2SAT 90–97
[2025-01-22] MEDS: normal saline 1000ml 1,000 ML IV SCH (04:45)
[2025-01-22 05:56] LABS: MEAN PLATELET VOLUME 7.7 FL (7.4-10.4); RED CELL DISTRIBUTION WIDTH 15.1 % (11.5-14.5)
[2025-01-22 06:28] LABS: CREATININE 0.75 MG/DL (0.60-1.10); TOTAL CARBON DIOXIDE 37.2 MMOL/L (24-32); eCRCL 148 ML/MIN; eGFR > 90 ML/MIN
[2025-01-22] MEDS: polyethylene glycol 3350 17gm powd pack PO PRN (12:13)
--- NOTE | 2025-01-22 20:21 | PROGRESS NOTE ---
Daily Progress Note Providers to CC ~ Antibiotic Timeout Antibiotic Ordered?: No Subjective Was feeling better and his vitals are stable. Detailed counseling done regarding risk and consequences of uncontrolled diabetes and counseling done how to manage diabetes in outpatient setting. Objective Vital Signs Date Time Temp Pulse Resp B/P (MAP) Pulse Ox O2 Delivery O2 Flow Rate FiO2 01/22/25 15:42 81 18 90 Nasal Cannula* 5 40 01/22/25 11:00 98.3 139/74 (95) Result Diagram: 01/22/2552001/22/25 0521 General-patient not in any acute distress, alert awake oriented, morbidly obese chronically ill-appearing HEENT-atraumatic normocephalic, neck supple without elevated JVD, no thyromegaly or carotid bruit. No lymphadenopathy bilaterally. Eyes-no icterus or pallor seen in eyes Chest-clear to auscultation bilaterally, breathing nonlabored no tachypnea, no wheezing, no crepitation, no crackles. Heart-S1-S2 normal, regular heart rate no murmur Abdomen bowel sounds positive on auscultation, soft nondistended nontender no guarding, no rigidity Skin no active skin rash, signs of bilateral hyperpigmentation over legs Neurology-grossly intact, nonfocal alert awake oriented Extremity- no pedal edema able to move all 4 extremities Psychiatry - patient is not confused or agitated cooperated during physical examination Problem\Assessment\Plan 39-year-old male with history of severe obesity, ZEUS, type 2 DM presented to the ER with chief complaints of high blood glucose levels of 400. Type 2 diabetes mellitus with hyperglycemia with A1c of 11.9 -normal anion gap, no metabolic acidosis, urine ketones pending -after his home dose of 65 units Lantus and 20 units lispro t.i.d. along with high-dose supplemental insulin protocol -monitor blood glucose levels and adjust insulin dose - metformin on hold Low blood pressure which improved with multiple bolus of normal saline. IV fluids started at 150 mL/hour yesterday will Monitor vitals closely. stopped IV fluids today Acute hypoxemic/hypercapnic respiratory failure Obstructive sleep apnea Suspect secondary to obesity hypoventilation syndrome/Pickwickian syndrome -oxygen sats of 88 on room air, however patient has no symptoms of hypoxia, no tachypnea -ABG repeated results discussed with respiratory therapy -he is using CPAP with pressure support of 13 at home -started BIPAP with 15/8 and repeat ABG in 6 hours -ekg showed severe right ventricular hypertrophy, qS in V2 V6 -CTA chest no pulmonary embolus -2D echo showed signs of pulmonary hypertension -clinical quality assurance specialist referral for Dr. Sterling recommended and discussed with case resolution specialist Mediastinal lymphadenopathy possible community-acquired pneumonia- unable to exclude -CTA chest showed right paratracheal, bilateral hilar lymph nodes of 1.5 cm, and 1 cm left axillary lymph nodes -CBC no leukocytosis/lymphocytosis, influenza and COVID negative, no B symptoms -differentials include infection, sarcoidosis, neoplastic process -reviewed calcium and JESSICA, HIV, LDH - on IV Rocephin and azithromycin Polycythemia -H&H with increased RBC -given history of ZEUS with ohs- suspect secondary polycythemia secondary to hypoxia versus secondary polycythemia due to dehydration -will monitor CBC in the a.m. Severe obesity -BMI of 54 -patient would definitely benefit from GLP one analogs Code Status: Full code Line/tube: PIV DVT prophylaxis: Lovenox Nutrition: 60 g carb controlled Patient's current condition is guarded we will continue to follow patient in AM . Date of Service: Jan 22, 2025 Billing Provider: GEENA CORONEL MD Common Visit Codes: [id number] INP/OBS CARE(HIGH) GEENA CORONEL MD Jan 22, 2025 20:21
[2025-01-22] MEDS ORDERED: magnesium hydroxide 30ml (MOM) UD suspension PO PRN (20:40)
[2025-01-22] MEDS: DEXTROSE 15 GM of carb/4 tabs (each vial/BOTTLE has 4 tablets) PO PRN (21:21)
[2025-01-23 02:00] VITALS: BP 128/68; PULSE 75; RESP 20; TEMP 98; O2SAT 95
[2025-01-23 06:12] LABS: MEAN PLATELET VOLUME 8.0 FL (7.4-10.4); RED CELL DISTRIBUTION WIDTH 14.6 % (11.5-14.5)
[2025-01-23 06:24] LABS: CREATININE 0.67 MG/DL (0.60-1.10); TOTAL CARBON DIOXIDE 39.4 MMOL/L (24-32); eCRCL 166 ML/MIN; eGFR > 90 ML/MIN
[2025-01-23 08:20] VITALS: PULSE 71; RESP 16; O2SAT 97
[2025-01-23] MEDS ORDERED: INSULIN LISPRO 100 UNIT/ML INSULN.PEN MULTI-DOSE SQ SCH (09:00)
[2025-01-23] MEDS: INSULIN LISPRO 100 UNIT/ML INSULN.PEN MULTI-DOSE SQ SCH (09:29)
[2025-01-23] MEDS ORDERED: INSU100I61 SQ (09:40)
--- NOTE | 2025-01-23 18:29 | DISCHARGE SUMMARY ---
Discharge Summary Providers to CC ~ Discharge Summary Admission Diagnosis: UNCONTROLLED T2DM, RESP FAILURE Hospital Course DATE OF ADMISSION: 01/20/25 DATE OF DISCHARGE:01/23/25 CBC testing done on January 23, 2025 WBC 7.1 hemoglobin 16.5 hematocrit 49.5 platelet count 248 sed rate two. Serum chemistry done on January 23, 2025 sodium 140 potassium 4.0 creatinine 0.67 GFR greater than 90. Hemoglobin A1c 11.9, lactic acid 1.4, blood culture showed no growth after five days ECHOCARDIOGRAMConclusion Overall LVEF is about 60%. Normal LV size and wall thickness. Overall systolic function is normal. Right ventricle is moderate to severely dilated with adequate function. Trileaflet AV appears mildly sclerotic without stenosis. No insufficiency by color and spectral flow Doppler. Mild mitral annular calcification without stenosis. Trace regurgitation. Tricuspid valve is grossly normal in structure with teace regurgitation. Pulmonic valve is grossly normal in structure without insufficiency. Normal pericardium. No effusion. CTA CHEST PEIMPRESSION: No evidence for large pulmonary embolism. Mediastinal/hilar lymphadenopathy which can be secondary to infectious, inflammatory, less likely but not ruled out a neoplastic etiology. Pulmonary ground-glass attenuation bilaterally with differential considerations including hypoventilatory changes/ air trapping, edema, inflammatory etiologies. CHEST,SINGLE VIEWThe cardiac silhouette is enlarged. The lungs demonstrate bilateral patchy airspace opacities most pronounced in the perihilar and lower lobe region, [id number]-left. The pulmonary vasculature is prominent. Small bilateral pleural effusions. There is no pneumothorax. Discharge Diagnosis\Comment: morbid obesity, ZEUS on CPAP at home, Type 2 diabetes mellitus uncontrolled with hyperglycemia with A1c of 11.9, hypotension resolved, Acute hypoxemic/hyp ercapnic respiratory failure, mediastinal lymphadenopathy Operations\Procedures: None Consultants: None Complications: None Condition on DC: Stable Changed Medications: Insulin Lispro (Insulin Lispro Kwikpen U-100) 100 Unit/Ml Insuln.pen 5 UNIT SQ TID for 30 Days, #2 VIAL (Changed from: 0 ; Sliding scale) Please take 5 units of regular insulin 15-20 minutes after eating your meals and then recheck blood sugar levels 1 hour after meals ( lunch and dinner ) Continued Medications: Atorvastatin Calcium (Atorvastatin Calcium) 20 Mg Tablet 20 TAB PO DAILY Insulin Glargine,Hum.rec.anlog* (Lantus*) 100 Unit/1 Ml Vial 65 UNITS SUBCUT HS for 30 Days, #15 ML Metformin HCl (Metformin HCl) 1,000 Mg Tablet 1000 TAB PO BID Discharge Summary: 39-year-old male with history of severe obesity, ZEUS, type 2 DM presented to the ER with chief complaints of high blood glucose levels of 400. Type 2 diabetes mellitus with hyperglycemia with A1c of 11.9 -normal anion gap, no metabolic acidosis, urine ketones pending -after his home dose of 65 units Lantus and 20 units lispro t.i.d. along with high-dose supplemental insulin protocol -monitor blood glucose levels and adjust insulin dose - on metformin at home Detailed counseling done regarding risk and consequences of uncontrolled diabetes and counseling done how to manage diabetes in outpatient setting. Low blood pressure which improved with multiple bolus of normal saline. IV fluids started at 150 mL/hour yesterday will Monitor vitals closely. stopped IV fluids today Acute hypoxemic/hypercapnic respiratory failure Obstructive sleep apnea Suspect secondary to obesity hypoventilation syndrome/Pickwickian syndrome -oxygen sats of 88 on room air, however patient has no symptoms of hypoxia, no tachypnea -ABG repeated results discussed with respiratory therapy -he is using CPAP with pressure support of 13 at home -started BIPAP with 15/8 and repeat ABG in 6 hours -ekg showed severe right ventricular hypertrophy, qS in V2 V6 -CTA chest no pulmonary embolus -2D echo showed signs of pulmonary hypertension -media center specialist referral for Dr. Sterling recommended and discussed with registered nurse hh case manager Mediastinal lymphadenopathy possible community-acquired pneumonia- unable to exclude -CTA chest showed right paratracheal, bilateral hilar lymph nodes of 1.5 cm, and 1 cm left axillary lymph nodes -CBC no leukocytosis/lymphocytosis, influenza and COVID negative, no B symptoms -differentials include infection, sarcoidosis, neoplastic process -reviewed calcium and JESSICA, HIV, LDH - on IV Rocephin and azithromycin Polycythemia -H&H 19/57 with increased RBC -given history of ZEUS with ohs- suspect secondary polycythemia secondary to hypoxia versus secondary polycythemia due to dehydration -will monitor CBC in the a.m. Severe obesity -BMI of 54 weight Loss and increase activity level recommended Patient is feeling better he has been afebrile and getting discharged home in stable condition. Patient is seen and examined on the day of discharge. All labs, diagnostic workup and discharge plan discussed with patient and family members in detail before his discharge. All questions and queries answered to the best of my professional medical knowledge. I heard patient's concerns and address appropriately. Patient was cleared by Physical therapy team for home discharge. housekeeper manager Lakisha involved in patient's discharge plan. Discharge instructions provided to the patientPatient needs follow-up with primary care physician/urgent care in outpatient setting in one week after hospital discharge. Detailed counseling done regarding risk and consequences of uncontrolled diabetes and counseling done how to manage diabetes in outpatient setting. Patient is strongly advised to monitor blood sugar 2-3 times per day fasting and nonfasting and show the blood sugar log document to PCP to review. Patient we will also need insulin therapy in outpatient setting from PCP. Further management of uncontrolled diabetes per PCP. Continue to monitor blood pressure and heart rate in outpatient. Increase activity compliance with medications strongly recommend. Please provide diabetic diet document and diabetes sliding scale to the patient . CPAP machine at home. media center specialist referral for Dr. Sterling recommended General-patient not in any acute distress, alert awake oriented, morbidly obese chronically ill-appearing HEENT-atraumatic normocephalic, neck supple without elevated JVD, no thyromegaly or carotid bruit. No lymphadenopathy bilaterally. Eyes-no icterus or pallor seen in eyes Chest-clear to auscultation bilaterally, breathing nonlabored no tachypnea, no wheezing, no crepitation, no crackles. Heart-S1-S2 normal, regular heart rate no murmur Abdomen bowel sounds positive on auscultation, soft nondistended nontender no guarding, no rigidity Skin no active skin rash, signs of bilateral hyperpigmentation over legs Neurology-grossly intact, nonfocal alert awake oriented Extremity- no pedal edema able to move all 4 extremities Psychiatry - patient is not confused or agitated cooperated during physical examination *Problems/Diagnosis: (1) Uncontrolled diabetes mellitus Status: Acute (2) Hypotension Total Time Spent on D/C: > 30 Minutes Date of Service: Jan 23, 2025 Billing Provider: GEENA CORONEL MD Common Visit Codes: [id number] DISCH DAY >30min GEENA CORONEL MD Jan 23, 2025 18:23
== END 2025-01-23 11:28 | disposition home or self-care (01) | DRG 637 ==
LOC: ER 16:49 → ED HOLD 20:56 → PCU 3S 23:55
PROVIDERS: ADMIT Internal Medicine; ATTEND Internal Medicine
PROC: B32T1ZZ Computerized Tomography (CT Scan) of Left Pulmonary Artery using Low Osmolar Contrast (ICD-10-PCS; principal; 2025-01-20)
PROC: B3201ZZ Computerized Tomography (CT Scan) of Thoracic Aorta using Low Osmolar Contrast (ICD-10-PCS; 2025-01-20)
PROC: B32S1ZZ Computerized Tomography (CT Scan) of Right Pulmonary Artery using Low Osmolar Contrast (ICD-10-PCS; 2025-01-20)
PROC: 5A09357 Assistance with Respiratory Ventilation, Less than 24 Consecutive Hours, Continuous Positive Airway Pressure (ICD-10-PCS; 2025-01-21)
PROC: 5A09357 Assistance with Respiratory Ventilation, Less than 24 Consecutive Hours, Continuous Positive Airway Pressure (ICD-10-PCS; 2025-01-23)
DX: E11.65 Type 2 diabetes mellitus with hyperglycemia (principal); J69.0 Pneumonitis due to inhalation of food and vomit; J96.02 Acute respiratory failure with hypercapnia; J96.01 Acute respiratory failure with hypoxia; Z68.43 Body mass index [BMI] 50.0-59.9, adult; E66.2 Morbid (severe) obesity with alveolar hypoventilation; D75.1 Secondary polycythemia; R59.0 Localized enlarged lymph nodes; E86.0 Dehydration; I51.7 Cardiomegaly; Z79.4 Long term (current) use of insulin; I95.9 Hypotension, unspecified; Z79.84 Long term (current) use of oral hypoglycemic drugs
CPT/HCPCS: 36415; 36600; 71045; 71275; 80048; 80053; 80061; 80305; 81001; 82164; 82803; 82948; 83036; 83605; 83615; 83735; 83880; 84145; 84443; 84484; 85007; 85018; 85025; 85651; 86703; 87040; 87081; 87804; 87811; 93005; 93306; 94660; 94760; 96372; 99285; A4615; A6258; A6455; G0378; J0456; J0696; J1650; J1815; J2405; J7030; J7040; Q9967